=== PATIENT | female | born 1945 | race Caucasian/White ===

== ENCOUNTER 2018-02-06 12:27 | Emergency (ER) | payer BC, MEDICARE, OTHER ==
[2018-02-06 12:34] VITALS: BMI 27.1
[2018-02-06 12:37] VITALS: RESP 18; O2SAT 98
--- NOTE | 2018-02-06 13:00 | ED PDOC ---
Arrival/HPI - General Chief Complaint: Dizziness/Lightheaded Historian: Patient - History of Present Illness Narrative History of Present Illness (Text): 02/06/18 13:00 72 year old female whose past medical history includes diabetes, and hypertension, who presents to the Emergency department complaining of dizziness, and elevated blood pressure that occurred last night. Patient is diabetic and reports not watching her diet last night while at a green party. She subsequently started experiencing dizziness, 3 episodes of vomiting, and her systolic blood pressure was measured at 200. Patient reports that her blood pressure improved after taking her antihypertensive medication, and notes not feeling dizzy today. Of note patient admits to having increased urination frequency, which hasn't worsened from her normal baseline. She admits to bilateral lower extremity edema and diarrhea, but denies noticing any other family members with similar symptoms. Patient denies fevers, chills, cough, shortness of breath, chest pain, dyspnea on exertion, abdominal pain, vomiting, back pain, neck pain, headache or any other complaint. PMD: Dr.Parvez Yo Time/Duration: 24 hours Symptom Onset: Sudden Symptom Course: Improving Activities at Onset: Eating Context: Other (at a green party) Past Medical History - Provider Review Nursing Documentation Reviewed: Yes - Tetanus Immunization Tetanus Immunization: Unknown - Reproductive Menopause: Yes - Cardiac Hx Hypertension: Yes - Psychiatric Hx Substance Use: No - Surgical History Hx Cholecystectomy: Yes - Anesthesia Hx Anesthesia Reactions: No Hx Malignant Hyperthermia: No - Suicidal Assessment Feels Threatened In Home Enviroment: No Family/Social History - Physician Review Nursing Documentation Reviewed: Yes Family/Social History: No Known Family HX Smoking Status: Never Smoked Hx Alcohol Use: No Hx Substance Use: No Hx Substance Use Treatment: No Allergies/Home Meds Allergies/Adverse Reactions: Allergies No Known Allergies Allergy (Verified 08/20/12 10:12) Home Medications: Home Meds Medication Instructions Recorded Confirmed Acetaminophen/Oxycodone Hydr 1 tab PO DAILY 08/20/12 08/20/12 [Percocet 325 mg-5 mg] Atenolol 50 mg PO DAILY 08/20/12 08/20/12 Ibandronate Sodium 150 mg PO 08/20/12 08/20/12 Insulin Detemir [Levemir] 14 unit SC HS 08/20/12 08/20/12 Linagliptin [Tradjenta] 5 mg PO DAILY 08/20/12 08/20/12 Simvastatin 40 mg PO DAILY 08/20/12 08/20/12 Review of Systems - Physician Review All systems were reviewed & negative as marked: Yes - Review of Systems Constitutional: absent: Fevers, Night Sweats Respiratory: absent: SOB, Cough Cardiovascular: Edema. absent: Chest Pain, RODRIGEZ Gastrointestinal: Diarrhea, Vomiting. absent: Abdominal Pain Neurological: Dizziness. absent: Headache Physical Exam Vital Signs Reviewed: Yes Vital Signs Temp Pulse Resp BP Pulse Ox 02/06/18 12:28 98 F 69 18 195/76 H 98 Temperature: Afebrile Blood Pressure: Hypertensive Pulse: Regular Respiratory Rate: Normal Appearance: Positive for: Well-Appearing Mental Status: Positive for: Alert and Oriented X 3 - Systems Exam Head: Present: Atraumatic, Normocephalic Pupils: Present: PERRL Extroacular Muscles: Present: EOMI Conjunctiva: Present: Normal Mouth: Present: Moist Mucous Membranes Neck: Present: Normal Range of Motion Respiratory/Chest: Present: Clear to Auscultation, Good Air Exchange, Other (adequate breath sounds in anterior lung kaur). No: Respiratory Distress, Accessory Muscle Use Cardiovascular: Present: Regular Rate and Rhythm, Normal S1, S2. No: Murmurs Abdomen: No: Tenderness, Distention, Peritoneal Signs Back: Present: Normal Inspection Upper Extremity: Present: Normal Inspection. No: Cyanosis, Edema Lower Extremity: Present: Normal Inspection, Edema (+1 bilateral pitting edema ) Neurological: Present: GCS=15, CN II-XII Intact, Speech Normal Skin: Present: Warm, Dry, Normal Color. No: Rashes Psychiatric: Present: Alert, Oriented x 3, Normal Insight, Normal Concentration Medical Decision Making ED Course and Treatment: 02/06/18 13:00 Impression: 72 year old diabetic female who complains of elevated blood pressure, dizziness, and vomiting that occurred last night after eating. Differential Diagnosis included but are not limited to: Hypertension Urgency/emergency Gastritis Vertigo Plan: -- Head CT without contrast -- Chest X-ray -- Labs -- Cardiac enzymes -- Blood work -- Reassess and disposition Prior Visits: Notes and results from previous visits were reviewed. Patient was last seen in the emergency department on 08/20/12 and was diagnosed with vertigo and discharged home. Progress Notes: 02/06/18 14:38 Labs reviewed with no acute abnormalities. BUN/creatinine WNL with troponin negative. CTH reveals no acute abnormalities with incidental finding of calcified meningioma. Patient and son updated on findings. Pending UA results. - Lab Interpretations I have reviewed the lab results: Yes - RAD Interpretation Narrative RAD Interpretations (Text): 02/06/18 14:[address] without contrast: Dictated by: Magaly Valdez MD Impression: 11 mm calcified extra-axial mass favored to represent a calcified meningioma. Recommend correlation with prior outside imaging if available. Follow-up MRI without and with IV contrast may be considered for further evaluation if indicated. 02/06/18 14:25 Chest X-ray: Findings: Lungs: No focal consolidation. Scattered probable tiny calcified granulomas. Please note that chest X-ray has limited sensitivity for the detection of pulmonary masses. Impression: No focal consolidation. Incidental findings as above. Radiology Orders: 02/06/18 12:47 HEAD W/O CONTRAST [CT] Stat CHEST PORTABLE [RAD] Stat Teletypesetter: Radiologist - EKG Interpretation EKG Interpretation (Text): 02/06/18 12:44 EKG shows NSR at 72 BPM with intermittent PAC's and no ST elevations. Interpreted by me. Interpreted by ED Physician: Yes Type: 12 lead EKG - Scribe Statement The provider has reviewed the documentation as recorded by the Scribe Rad Rosen Provider Scribe Attestation: All medical record entries made by the Scribe were at my direction and personally dictated by me. I have reviewed the chart and agree that the record accurately reflects my personal performance of the history, physical exam, medical decision making, and the department course for this patient. I have also personally directed, reviewed, and agree with the discharge instructions and disposition. Disposition/Present on Arrival - Present on Arrival Any Indicators Present on Arrival: No History of DVT/PE: No History of Uncontrolled Diabetes: No Urinary Catheter: No History of Decub. Ulcer: No History Surgical Site Infection Following: None - Disposition Have Diagnosis and Disposition been Completed?: Yes Diagnosis: Hypertensive urgency Disposition: HOME/ ROUTINE Disposition Time: 14:57 Patient Plan: Discharge Condition: IMPROVED Discharge Instructions (ExitCare): High Blood Pressure (DC) Print Language: TRISTANIAN Additional Instructions: All medical record entries made by the Scribe were at my direction and personally dictated by me. I have reviewed the chart and agree that the record accurately reflects my personal performance of the history, physical exam, medical decision making, and the department course for this patient. I have also personally directed, reviewed, and agree with the discharge instructions and disposition. Prescriptions: Cephalexin [cephalexin] 500 mg PO BID 5 Days #10 cap Referrals: Rajat Roque MD [Staff Provider] - Follow up with primary [facility] [place] - Follow up with primary Forms: [employer] ([place]ish)
[2018-02-06 13:28] LABS: ALB/GLOB RATIO 1.2 (1.1-1.8); ALBUMIN 4.3 g/dL (3.0-4.8); ALT/SGPT 20 U/L (7-56); AST/SGOT 26 U/L (14-36); BLOOD UREA NITROGEN 34 mg/dL (7-21); CALCIUM 9.6 mg/dL (8.4-10.5); GFR NON-AFRICAN AMERICAN 37
[2018-02-06 13:31] LABS: BASO # 0.06 K/mm3 (0.0-2.0); BASO % 0.6 % (0.0-3.0); EOS # 0.1 (0.0-0.7); EOS % 1.2 % (1.5-5.0); GRAN # 7.91 (1.4-6.5); GRAN % 77.5 % (50.0-68.0); HEMOGLOBIN 11.1 g/dL (12.0-16.0); LYMPH # 1.9 (1.2-3.4); LYMPH % 18.2 % (22.0-35.0); MEAN CELL VOLUME 88.4 fl (80.0-105.0); MEAN CORPUSCULAR HEMOGLOBIN 29.3 pg (25.0-35.0); MEAN CORPUSCULAR HGB CONC 33.1 g/dl (31.0-37.0); MEAN PLATELET VOLUME 9.4 fl (7.0-11.0); MONO # 0.3 (0.1-0.6); MONO % 2.5 % (1.0-6.0); RBC 3.79 10^6/uL (3.5-6.1); RED CELL DISTRIBUTION WIDTH 12.4 % (11.5-14.5); WHITE BLOOD COUNT 10.2 10^3/uL (4.5-11.0)
[2018-02-06 13:32] LABS: INR 0.93; PARTIAL THROMBOPLASTIN TIME 28.7 Seconds (25.1-36.5); PROTHROMBIN TIME 10.7 SECONDS (9.4-12.5)
[2018-02-06 13:41] LABS: TROPONIN I < 0.01 ng/mL
--- NOTE | 2018-02-06 13:56 | CT ---
Date of service: 02/06/2018 PROCEDURE: CT HEAD WITHOUT CONTRAST. HISTORY: dizziness COMPARISON: None available. TECHNIQUE: Axial computed tomography images were obtained through the head/brain without intravenous contrast. Radiation dose: Total exam DLP = 833.37 mGy-cm. This CT exam was performed using one or more of the following dose reduction techniques: Automated exposure control, adjustment of the mA and/or kV according to patient size, and/or use of iterative reconstruction technique. FINDINGS: HEMORRHAGE: No intracranial hemorrhage. BRAIN: No mass effect or edema. Intracranial atherosclerosis. 11 mm calcified mass at the right vertex appears extra-axial and favored to represent a calcified meningioma. The moreau-white matter differentiation appears intact. Please note that MRI with diffusion imaging is more sensitive in the detection of acute ischemic event. VENTRICLES: No hydrocephalus. CALVARIUM: Unremarkable. PARANASAL SINUSES: Unremarkable as visualized. No significant inflammatory changes. MASTOID AIR CELLS: Unremarkable as visualized. No inflammatory changes. OTHER FINDINGS: None. IMPRESSION: 11 mm calcified extra-axial mass favored to represent a calcified meningioma. Recommend correlation with prior outside imaging if available. Follow-up MRI without and with IV contrast may be considered for further evaluation if indicated.
--- NOTE | 2018-02-06 14:20 | RAD ---
HISTORY: elevated blood pressure COMPARISON: Chest x-ray performed 10/17/13 TECHNIQUE: Chest, one view. FINDINGS: Examination limited by habitus. LUNGS: No focal consolidation. Scattered probable tiny calcified granulomas. Please note that chest x-ray has limited sensitivity for the detection of pulmonary masses. PLEURA: No significant pleural effusion identified. No definite pneumothorax . CARDIOVASCULAR: Heart size appears top normal. Atherosclerotic calcification present. OSSEOUS STRUCTURES: Degenerative changes of the spine. Punctate calcification adjacent to the right humeral head may reflect calcific tendinitis. VISUALIZED UPPER ABDOMEN: Unremarkable. OTHER FINDINGS: None. IMPRESSION: No focal consolidation. Incidental findings as above.
[2018-02-06 14:53] LABS: URINE BILIRUBIN NEGATIVE (NEGATIVE); URINE BLOOD SMALL (NEGATIVE); URINE GLUCOSE (UA) NEGATIVE (NEGATIVE); URINE LEUKOCYTE ESTERASE TRACE Leu/uL (NEGATIVE); URINE PROTEIN 100 mg/dL (<30 mg/dL); URINE UROBILINOGEN 0.2 E.U./dL (<1 E.U./dL)
[2018-02-06 14:55] LABS: URINE APPEARANCE CLEAR (CLEAR); URINE COLOR YELLOW (YELLOW)
[2018-02-06 15:10] LABS: URINE AMORPHOUS SEDIMENT TRACE; URINE BACTERIA LARGE (NEG)
[2018-02-06 15:11] VITALS: BP 118/71; PULSE 74; TEMP 98.6
--- NOTE | 2018-02-07 09:21 | CARD ---
APPROVED REPORT Date of service: 02/06/2018 EKG Measurement Heart [id number] <Conclusion> Sinus rhythm with 1 APC Normal ECG No change
== END 2018-02-06 15:11 | disposition home or self-care (01) ==
LOC: ED 12:27
DX: I16.0 Hypertensive urgency (principal); E11.9 Type 2 diabetes mellitus without complications